=== PATIENT | female | born 1980 | race Caucasian/White ===

== ENCOUNTER → 2016-10-13 | Outpatient (CLI) | payer BC ==
--- NOTE | 2016-10-14 15:01 | US ---
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 Technique: Soft tissues of the left neck were examined at the site of the patient`s reported bump. Findings: There is no discrete mass or fluid collection. Should the patient have a clinically palpable abnormality, MRI could be considered for further evaluation. Impression: No mass or fluid collection seen at site of patient`s reported bump. Dictated by Roly Serna MD @ Oct 14 2016 2:48PM (Electronic Signature) Report Signed by Proxy. PANDA
== END ==
LOC: MW.US 10:16
PROVIDERS: ATTEND Physician Assistant
DX: R22.1 Localized swelling, mass and lump, neck (principal)
CPT/HCPCS: 76536-LT

== ENCOUNTER 2020-11-14 14:17 | Emergency (ER) | payer BC, MEDICAID ==
[2020-11-14] MEDS ORDERED: Alum Hydrox/Mag Hydrox/Simeth 15 ML, Lidocaine 2% 5 ML PO ONE ×2 (14:47)
--- NOTE | 2020-11-14 15:35 | CR ---
INDICATION: inhaled candy. 11-06-2018 TECHNIQUE: Chest 1 view. COMPARISON: None. FINDINGS: Cardiovascular and mediastinum: Heart size and vasculature are normal in caliber and appearance. Mediastinum is within normal limits. Lungs and pleural space: Lungs are clear. No sign of infiltrate or mass. No sign of pleural effusion. No pneumothorax. Bones and soft tissues: No significant findings. IMPRESSION: Unremarkable chest. Dictated by: Gregorio Vu MD @ 11/14/2020 15:34:14 (Electronically Signed)
--- NOTE | 2020-11-14 15:47 | EDM.PDOC ---
ED HPI GENERAL MEDICAL PROBLEM - General Chief Complaint: ENT Problem Stated Complaint: something stuck in throat Time Seen by Provider: 11/14/20 14:30 Source of Information: Reports: Patient History Limitations: Reports: No Limitations - History of Present Illness INITIAL COMMENTS - FREE TEXT/NARRATIVE: HISTORY AND PHYSICAL: History of present illness: Patient is a 39-year-old female who presents emergency room today with concern of discomfort after choking on a hard candy just prior to arrival to the ED. Patient states that she was sucking on a hard candy and started to choke on it when she accidentally swallowed. Patient states initially she coughed and believes that she ended up swallowing the hard candy. Patient states that she has had pain in her upper back since following and states that she does have some pain now with swallowing fluids but is able to take a drink of water. Patient denies any residual coughing or shortness of breath. Denies any other symptoms or concerns. Patient denies fever, chills, chest pain, shortness of breath, or cough. Denies headache, neck stiff ness, change in vision, syncope, or near syncope. Denies nausea, vomiting, abdominal pain, diarrhea, constipation, or dysuria. Has not noted any blood in urine or stool. Patient has been eating and drinking appropriately. Review of systems: As per history of present illness and below otherwise all systems reviewed and negative. Past medical history: As per history of present illness and as reviewed below otherwise noncontributory. Surgical history: As per history of present illness and as reviewed below otherwise noncontributory. Social history: See social history for further information Family history: As per history of present illness and as reviewed below otherwise noncontributory. Physical exam: General: Patient is alert, oriented, and in no acute distress. Patient sitting comfortably on exam table, mildly anxious appearing. Vitals stable and reviewed by me. HEENT: Atraumatic, normocephalic, pupils equal and reactive bilaterally, negative for conjunctival pallor or scleral icterus, mucous membranes moist, TMs normal bilaterally, throat clear, neck supple, nontender, trachea midline. No drooling or trismus noted. No meningeal signs. No hot potato voice noted. Lungs: Clear to auscultation, breath sounds equal bilaterally, chest nontender. Patient speaking clearly without breathlessness, no wheezing or stridor, no accessory muscle use or respiratory distress. Heart: S1S2, regular rate and rhythm without overt murmur Abdomen: Soft, nondistended, nontender. Negative for masses or hepatosplenomegaly. Negative for costovertebral tenderness. Pelvis: Stable nontender. Genitourinary: Deferred. Rectal: Deferred. Skin: Intact, warm, dry. No lesions or rashes noted. Extremities: Atraumatic, negative for cords or calf pain. Neurovascular unremarkable. Neuro: Awake, alert, oriented. Cranial nerves II through XII unremarkable. Cerebellum unremarkable. Motor and sensory unremarkable throughout. Exam nonfocal. Notes: Patient is a 39-year-old female who presents emergency room today secondary to a choking incident on a hard piece of candy that occurred just prior to arrival to the ED. Upon arrival to the ED, patient is vitally stable and well-appearing but is mildly anxious on exam. She does not have any drooling noted and is able to swallow 4 ounces of water without difficulty and keep this down in the ED. She does not have any signs of respiratory distress and is able to speak clearly without breathlessness. No stridor or wheezing noted on exam. However, patient does note a pain of her upper back/esophagus pain and is concerned about this. Will obtain a 1 view chest x-ray for stated complaint. Chest x-ray is unremarkable. Upon reevaluation of patient, following therapeutics, she states that she had a "burping episode "and has completely resolved her upper back/esophageal pain that she describes. She remains vitally stable on exam and is no longer anxious appearing. Signs and symptoms that were prompt return to the ED thoroughly discussed with patient. Discussed importance for follow-up with a primary care provider. Voices understanding and is agreeable to plan of care. Denies any further questions or concerns at this time. Diagnostics: CXR Therapeutics: GI cocktail Prescription: None Impression: Dysphagia Plan: 1. Follow-up with your primary care provider as discussed. Return to the ED as needed and as discussed. Definitive disposition and diagnosis as appropriate pending reevaluation and review of above. - Related Data Allergies Allergy/AdvReac Type Severity Reaction Status Date / Time Penicillins Allergy UNKNOWN Verified 11/14/20 14:30 sertraline HCl [From Zoloft] Allergy UNKNOWN Verified 11/14/20 14:30 Home Meds: Home Meds . [No Known Home Meds] 11/14/20 [History] Past Medical History - Past Health History Medical/Surgical History: Denies Medical/Surgical History - Infectious Disease History Infectious Disease History: Reports: None Social & Family History - Tobacco Use Tobacco Use Status *Q: Never Tobacco User - Caffeine Use Caffeine Use: Reports: None - Recreational Drug Use Recreational Drug Use: No ED ROS GENERAL - Review of Systems Review Of Systems: Comprehensive ROS is negative, except as noted in HPI. ED EXAM, GENERAL - Physical Exam Exam: See Below (see dictation) Course - Vital Signs Last Recorded V/S: Last Vital Signs Temp 96.9 F 11/14/20 14:30 Pulse 73 11/14/20 15:52 Resp 18 11/14/20 15:52 BP 97/64 11/14/20 15:52 Pulse Ox 97 11/14/20 15:52 - Orders/Labs/Meds Meds: Medications Discontinued Medications Generic Name Dose Route Start Last Admin Trade Name Freq PRN Reason Stop Dose Admin Al Hydroxide/Mg Hydroxide 15 0 ml 11/14/20 14:47 11/14/20 14:59 ml/ Lidocaine HCl 5 ml PO 11/14/20 14:48 1 each ONETIME ONE Administration Departure - Departure Time of Disposition: 15:47 Disposition: Home, Self-Care 01 Clinical Impression: Dysphagia Qualifiers: Dysphagia type: unspecified Qualified Code(s): R13.10 - Dysphagia, unspecified - Discharge Information Instructions: Dysphagia Referrals: Ravi Andre MD [Primary Care Provider] - Forms: ED Department Discharge Additional Instructions: The following information is given to patients seen in the emergency department who are being discharged to home. This information is to outline your options for follow-up care. We provide all patients seen in our emergency department with a follow-up referral. The need for follow-up, as well as the timing and circumstances, are variable depending upon the specifics of your emergency department visit. If you don't have a primary care physician on staff, we will provide you with a referral. We always advise you to contact your personal physician following an emergency department visit to inform them of the circumstance of the visit and for follow-up with them and/or the need for any referrals to a consulting specialist. The emergency department will also refer you to a specialist when appropriate. This referral assures that you have the opportunity for follow-up care with a specialist. All of these measure are taken in an effort to provide you with optimal care, which includes your follow-up. Under all circumstances we always encourage you to contact your private physician who remains a resource for coordinating your care. When calling for follow-up care, please make the office aware that this follow-up is from your recent emergency room visit. If for any reason you are refused follow-up, please contact the [facility] Emergency Department at and asked to speak to the emergency department charge nurse. [facility] [address] [place] [id number] [address] 1. Follow-up with your primary care provider as discussed. Return to the ED as needed and as discussed. Sepsis Event Note (ED) - Evaluation Sepsis Screening Result: No Definite Risk
== END 2020-11-14 15:52 | disposition home or self-care (01) ==
LOC: MW.ED 14:17
DX: R13.10 Dysphagia, unspecified (principal); Z88.0 Allergy status to penicillin; Z88.8 Allergy status to other drugs, medicaments and biological substances
CPT/HCPCS: 71045; 99284; A9270